=== PATIENT | female | born 1985 | race African-American/Black ===

== ENCOUNTER 2016-08-02 06:22 | Inpatient (IN) ==
[2016-08-02] MEDS ORDERED: ceFAZolin 2,000 MG in PREMIX 1 EACH IV ONE (07:19)
[2016-08-02] MEDS ORDERED: CITRIC ACID/SODIUM CITRATE 30 ML UDCUP PO ONE (07:19)
[2016-08-02] MEDS ORDERED: FAMOTIDINE 20 MG/2 ML VIAL IV ONE (07:19)
[2016-08-02] MEDS ORDERED: LACTATED RINGERS 1,000 ML IV SCH ×2 (07:30→10:30)
[2016-08-02] MEDS ORDERED: OXYTOCIN/LR 20 UNIT/1,000 ML BAG IV ONE ×2 (07:53→10:05)
[2016-08-02 08:04] LABS: Basophils # 0.1 10*3/uL (0.0-0.2); Basophils % 0.6 % (0.0-0.8); Eosinophils % 0.1 % (0.00-10.9); Hematocrit 32.9 VOL% (35.7-47.0); Hemoglobin 10.5 GM/DL (12.0-16.0); Immature Granulocytes % 9.8 %; Immature Granulocytes Absolute 0.76 #; Lymphocytes # 1.3 10*3/uL (1.4-4.0); Mean Corpuscular HGB Conc 31.9 GM/DL (32-36); Mean Corpuscular Hemoglobin 28 PG (27-34); Mean Corpuscular Volume 87.5 FL (87-102); Mean Platelet Volume 12.1 FL (9.6-12.0); Monocytes # 0.8 10*3/uL (0.11-0.8); Monocytes % 10.8 % (1.7-12.7); Neutrophils # 4.8 10*3/uL (1.4-7.4); Neutrophils % 61.7 % (38.7-73.9); Platelet Count 133 T/CUMM (130-400); Red Blood Count 3.76 MC/CUMM (3.8-5.5); Red Cell Distribution Width 15.6 % (9.3-17.3); White Blood Count 7.8 T/CUMM (4-12)
[2016-08-02 08:13] LABS: PT Patient Result 10.5 SECS; Partial Thromboplastin Time 26.4 SECS (0-40)
--- NOTE | 2016-08-02 08:13 | OB/GYN History & Physical ---
History of Present Illness Chief complaint: Repeat section History of present illness: Ms. Del Castillo is a 31 year old female at 39 3/7 wks who presents for scheduled repeat section. complicated by excessive weight gain (85 lbs). No medical or additional surgical history. R/B/A to surgery reviewed. 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 Current Visit: Yes Results - Labs CBC & BMP: 08/02/16 07:31
[2016-08-02 08:32] LABS: Band Neutrophils 1 % (0-10); Eosinophils 2 % (0-10); Hypochromasia Slight; Lymphocytes 19 % (20-55); Metamyelocytes 2 %; Segmented Neutrophils 67 % (50-85); Total Cells Counted 100
[2016-08-02 08:33] LABS: Microcytosis Slight; Platelet Estimate Adequate
[2016-08-02 08:34] LABS: Alanine Aminotransferase 37 U/L (13-56); Albumin 2.6 G/DL (3.4-5.0); Alkaline Phosphatase 170 U/L (45-117); Aspartate Amino Transferase 49 U/L (0-37); Bilirubin,Total < 0.39 MG/DL (0.2-1.0); Blood Urea Nitrogen 6 MG/DL (7-18); Calcium 8.9 MG/DL (8.5-10.1); Glucose 85 MG/DL (74-106); Osmolality,Calculated 279.1 MOS/KG (273-304); Potassium 4.2 MMOL/L (3.5-5.1); Sodium 142 MMOL/L (136-145)
[2016-08-02] MEDS ORDERED: PROPOFOL 200 MG/20 ML VIAL IV ONE (08:35)
[2016-08-02] MEDS ORDERED: ONDANSETRON 4 MG/2 ML VIAL ONE (08:35)
[2016-08-02] MEDS ORDERED: RHO(D) IMMUNE GLOBULIN 300 MCG SYRINGE IM ONE (10:05)
[2016-08-02] MEDS ORDERED: ONDANSETRON 4 MG/2 ML VIAL IV PRN (10:05)
[2016-08-02] MEDS ORDERED: MORPHINE 10 MG/10 ML VIAL ONE (10:17)
[2016-08-02] MEDS ORDERED: fentaNYL 100 MCG/2 ML VIAL ONE (10:17)
[2016-08-02 10:59] LABS: Apearance,Urine CLEAR (Clear); Bacteria,Urine Occasional /HPF (Few); Bilirubin,Urine Negative (Negative); Blood, Urine Negative (Negative); Glucose,Urine (UA) Negative (Negative); Ketones,Urine Negative (Negative); Mucus,Urine Occasional /LPF (Occasional); Nitrite,Urine Negative (Negative); Protein,Urine Negative; RBC,Urine 4 /HPF (0-4); Squamous Epithelial Cell,Urine Occasional /HPF (0-10); Urine Color Yellow (Yellow); Urine Specific Gravity 1.023 (1.001-1.035); Urine Urobilinogen < 2.0 EU/DL (0.2-1.0); WBC,Urine 2 /HPF (0-6)
[2016-08-02] MEDS: HYDROmorphone 2 MG/1 ML VIAL IV PRN ×2 (12:10→14:20)
[2016-08-02 19:06] LABS: Basophils % 0.4 % (0.0-0.8); Eosinophils % 0.1 % (0.00-10.9); Hematocrit 32.5 VOL% (35.7-47.0); Hemoglobin 10.4 GM/DL (12.0-16.0); Immature Granulocytes % 6.3 %; Immature Granulocytes Absolute 0.52 #; Lymphocytes # 0.9 10*3/uL (1.4-4.0); Lymphocytes % 10.8 % (21.3-54.2); Mean Corpuscular Hemoglobin 28 PG (27-34); Mean Corpuscular Volume 87.1 FL (87-102); Mean Platelet Volume 12.3 FL (9.6-12.0); Monocytes # 0.4 10*3/uL (0.11-0.8); Monocytes % 5.2 % (1.7-12.7); Neutrophils # 6.4 10*3/uL (1.4-7.4); Neutrophils % 77.2 % (38.7-73.9); Platelet Count 122 T/CUMM (130-400); Red Blood Count 3.73 MC/CUMM (3.8-5.5); Red Cell Distribution Width 15.7 % (9.3-17.3); White Blood Count 8.3 T/CUMM (4-12)
[2016-08-02] MEDS: DOCUSATE SODIUM 100 MG CAPSULE PO SCH (21:56)
[2016-08-03 07:18] LABS: Basophils % 0.4 % (0.0-0.8); Hematocrit 30.2 VOL% (35.7-47.0); Hemoglobin 9.7 GM/DL (12.0-16.0); Immature Granulocytes % 4.8 %; Immature Granulocytes Absolute 0.39 #; Lymphocytes # 0.7 10*3/uL (1.4-4.0); Lymphocytes % 8.4 % (21.3-54.2); Mean Corpuscular HGB Conc 32.1 GM/DL (32-36); Mean Corpuscular Hemoglobin 27 PG (27-34); Mean Corpuscular Volume 85.1 FL (87-102); Mean Platelet Volume 11.9 FL (9.6-12.0); Monocytes # 0.8 10*3/uL (0.11-0.8); Monocytes % 9.5 % (1.7-12.7); Neutrophils # 6.3 10*3/uL (1.4-7.4); Neutrophils % 76.9 % (38.7-73.9); Platelet Count 129 T/CUMM (130-400); Red Blood Count 3.55 MC/CUMM (3.8-5.5); Red Cell Distribution Width 15.9 % (9.3-17.3); White Blood Count 8.1 T/CUMM (4-12)
--- NOTE | 2016-08-03 08:32 | OB/GYN Progress Note ---
Assessment and Plan (1) 39 weeks gestation of Status: Acute Current Visit: Yes (2) H/O section Status: Acute Assessment and plan: Plan repeat section. Current Visit: Yes (3) S/P repeat low transverse Status: Acute Assessment and plan: POD#1 s/p repeat section Doing ok today. BP good. Platelets stable. (Platelets on the lower end and LFTs mildly elevated yesterday. 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 She also has a cough with some productivity. Unable to really tell me if she had a cough or cold prior to admission to the hosptial. No flatus. 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 Mild distension) Results - Labs CBC & BMP: 08/03/16 07:00 08/02/16 07:31
[2016-08-03] MEDS: MULTIVITAMIN (PRENATAL) TABLET PO SCH (09:14)
[2016-08-03] MEDS: MAGNESIUM HYDROXIDE SUSP 30 ML UDCUP PO PRN ×2 (09:14→20:00)
[2016-08-03] MEDS: DOCUSATE SODIUM 100 MG CAPSULE PO SCH ×2 (09:14→19:59)
[2016-08-03] MEDS: SIMETHICONE CHEW 80 MG TABLET PO PRN ×2 (09:14→16:45)
--- NOTE | 2016-08-03 13:38 | Anesthesia ---
Anesthesia Post OP - Post Ansesthetic Evaluation Patient seen in post op: Yes Resp: within normal limits CV: within normal limits Mental: within normal limits Temp: within normal limits [id number]: within normal limits Nausea and Vomiting: within normal limits Pain: within normal limits
[2016-08-03] MEDS: IBUPROFEN 800 MG TABLET PO PRN (16:40)
[2016-08-04] MEDS: IBUPROFEN 800 MG TABLET PO PRN
[2016-08-04] MEDS: DOCUSATE SODIUM 100 MG CAPSULE PO SCH ×2 (09:16→21:45)
[2016-08-04] MEDS: MULTIVITAMIN (PRENATAL) TABLET PO SCH (09:16)
--- NOTE | 2016-08-04 11:48 | OB/GYN Progress Note ---
Assessment and Plan (1) 39 weeks gestation of Status: Acute Current Visit: Yes (2) H/O section Status: Acute Assessment and plan: Plan repeat section. Current Visit: Yes (3) S/P repeat low transverse Status: Acute Assessment and plan: POD#2 s/p repeat section Doing ok today. Still with edema. ERIC up a bit. 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 No issues with eating. Positive swelling. 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
[2016-08-05 07:21] VITALS: BP 118/69
--- NOTE | 2016-08-05 08:08 | Discharge Summary ---
Hospital Course - Hospital Course Hospital Course: Rotine post op course. Feels good this morning and is ready to go home. Diagnosis - Discharge Diagnosis (1) 39 weeks gestation of Status: Acute (2) H/O section Status: Acute (3) S/P repeat low transverse Status: Acute Specialty Discharge - Follow Up or Referrals Follow up with: Osiris Luis MD [Physician] - Discharge Plan - Discharge Data Disposition: Disch To Home/Self Care Condition at Discharge: Stable Discharge Diet: advance to your usual diet Activity: other (routine post op) Hygiene: may shower Weight Bearing at Discharge: full weight bearing Driving: not for (2 weeks) - Discharge Medications New Docusate Sodium Cap [Colace Cap] 100 mg PO BID #30 capsule HYDROcodone/ACETAMIN 5-325 [[place] 5-325] 2 tablet PO Q6H PRN #20 tablet PRN Reason: Pain Severe (8-10) Ibuprofen Tab [Motrin Tab] 800 mg PO Q8H PRN #30 tablet PRN Reason: Pain Severe (8-10) No Action Vit No.124/Iron/FA [ Vitamin Tablet] 1 tablet PO DAILY - Follow Up or Referral Follow Up: Osiris Luis MD [Physician] - - Forms/Instructions Instructions: Section (DC), Acute Wound Care (DC), Bleeding (DC) Exam - Constitutional Vitals: Period Temp Pulse Resp BP Sys/Fraser Pulse Ox Last 24 Hr 97.0 F-100.1 F 89-116 18-20 105-136/64-78 98-99 General appearance: no acute distress - Head Head exam: Present: normocephalic - Eye Eye exam: Present: EOMI - GI/Abdominal GI/Abdominal exam: Present: soft, other (incision intact) DS: Provider Date of admission: 08/02/16 07:19 Primary care physician: . No PCP Attending physician on admission: Osiris Luis MD Consults: 08/02/16 10:05 Consult to Kiss Setter Hand [CONS] Routine Consult Kiss Setter Hand: Breast Feeding Discharging clinician: Osiris Luis MD
[2016-08-05] MEDS ORDERED: DIPH/TET/ACEL PERT BOOSTER VACCINE 0.5 ML VIAL IM ONE (08:57)
[2016-08-05] MEDS: DOCUSATE SODIUM 100 MG CAPSULE PO SCH (10:15)
[2016-08-05] MEDS: MULTIVITAMIN (PRENATAL) TABLET PO SCH (10:15)
== END 2016-08-05 11:15 | disposition home or self-care (01) | DRG 766 ==
LOC: N.LDOUT 06:22 → N.LD 06:27 → N.OB 14:13
PROVIDERS: ADMIT Obstetrics & Gynecology; ATTEND Obstetrics & Gynecology
PROC: LDCSECT (ICD-10-PCS; 2016-08-02 07:35)

== ENCOUNTER 2018-02-19 02:22 | Inpatient (IN) ==
[2018-02-19] MEDS ORDERED: LACTATED RINGERS 500 ML IV PRN (02:42)
[2018-02-19] MEDS ORDERED: FAMOTIDINE 20 MG/2 ML VIAL IV PRN (02:42)
[2018-02-19] MEDS ORDERED: MEPERIDINE 50 MG/1 ML VIAL IV PRN (02:42)
[2018-02-19] MEDS ORDERED: BUTORPHANOL 2 MG/ML VIAL IV PRN (02:42)
[2018-02-19] MEDS ORDERED: CITRIC ACID/SODIUM CITRATE 30 ML UDCUP PO ONE (02:44)
[2018-02-19] MEDS ORDERED: OXYTOCIN/LR 20 UNIT/1,000 ML BAG IV ONE (02:45)
[2018-02-19] MEDS: LACTATED RINGERS 1,000 ML IV SCH (02:47)
[2018-02-19] MEDS ORDERED: ceFAZolin 2,000 MG in PREMIX 1 EACH IV ONE (02:49)
[2018-02-19 02:50] LABS: Apearance,Urine Slightly Hazy (Clear); Bacteria,Urine Occasional /HPF (Few); Bilirubin,Urine Negative (Negative); Blood, Urine Small mg/dL (Negative); Glucose,Urine (UA) Negative (Negative); Hyaline Casts,Urine 1 /LPF (0-3); Ketones,Urine Negative (Negative); Mucus,Urine Occasional /LPF (Occasional); Nitrite,Urine Negative (Negative); Protein,Urine Negative; RBC,Urine 19 /HPF (0-4); Squamous Epithelial Cell,Urine Occasional /HPF (0-10); Urine Color Yellow (Yellow); Urine Specific Gravity 1.013 (1.001-1.035); Urine Urobilinogen < 2.0 EU/DL (0.2-1.0); WBC,Urine 25 /HPF (0-6)
[2018-02-19 02:55] LABS: Basophils # 0.1 10*3/uL (0.0-0.2); Basophils % 0.9 % (0.0-0.8); Eosinophils % 0.1 % (0.00-10.9); Hematocrit 36.2 VOL% (35.7-47.0); Hemoglobin 11.5 GM/DL (12.0-16.0); Immature Granulocytes % 8.7 %; Immature Granulocytes Absolute 0.79 #; Lymphocytes # 1.3 10*3/uL (1.4-4.0); Lymphocytes % 14.6 % (21.3-54.2); Mean Corpuscular HGB Conc 31.8 GM/DL (32-36); Mean Corpuscular Hemoglobin 28 PG (27-34); Mean Corpuscular Volume 86.8 FL (87-102); Mean Platelet Volume 11.9 FL (9.6-12.0); Monocytes # 0.9 10*3/uL (0.11-0.8); Monocytes % 9.5 % (1.7-12.7); NRBC # 0.02 10*3/uL; Neutrophils % 66.2 % (38.7-73.9); Platelet Count 131 T/CUMM (130-400); Red Blood Count 4.17 MC/CUMM (3.8-5.5); Red Cell Distribution Width 14.8 % (9.3-17.3); White Blood Count 9.1 T/CUMM (4-12)
[2018-02-19 03:20] LABS: Alanine Aminotransferase 46 U/L (13-56); Albumin 2.7 G/DL (3.4-5.0); Alkaline Phosphatase 88 U/L (45-117); Aspartate Amino Transferase 43 U/L (0-37); Bilirubin,Total < 0.39 MG/DL (0.2-1.0); Blood Urea Nitrogen 6 MG/DL (7-18); Calcium 8.9 MG/DL (8.5-10.1); Glucose 109 MG/DL (74-106); Osmolality,Calculated 273.7 MOS/KG (273-304); Potassium 4.1 MMOL/L (3.5-5.1); Sodium 138 MMOL/L (136-145); Total Protein 7.1 G/DL (6.4-8.3)
[2018-02-19 03:33] LABS: Lymphocytes 23 % (20-55); Metamyelocytes 2 %; Myelocytes 1 %; Segmented Neutrophils 64 % (50-85); Total Cells Counted 100
[2018-02-19 03:34] LABS: Atypical Lymphocytes Few; Reactive Lymphocytes Few
[2018-02-19 03:35] LABS: Giant Platelets Few; Platelet Estimate Normal; Polychromasia Few
[2018-02-19 03:36] LABS: Hypochromasia Slight
[2018-02-19] MEDS ORDERED: hydrOXYzine HCL 25 MG/1 ML VIAL IM PRN (04:54)
[2018-02-19] MEDS ORDERED: diphenhydrAMINE 50 MG/1 ML VIAL IV PRN (04:54)
[2018-02-19] MEDS ORDERED: NALOXONE 0.4 MG/ML VIAL IV PRN (04:54)
[2018-02-19] MEDS ORDERED: MORPHINE PCA 30 MG/30 ML SYRINGE IV SCH (05:00)
[2018-02-19] MEDS ORDERED: MIDAZOLAM 2 MG/2 ML VIAL ONE (05:09)
[2018-02-19] MEDS ORDERED: MORPHINE 10 MG/10 ML VIAL ONE (05:09)
[2018-02-19] MEDS ORDERED: fentaNYL 100 MCG/2 ML VIAL ONE (05:09)
[2018-02-19 05:12] LABS: Apearance,Urine CLEAR (Clear); Bilirubin,Urine Negative (Negative); Blood, Urine Negative (Negative); Glucose,Urine (UA) Negative (Negative); Hyaline Casts,Urine 4 /LPF (0-3); Ketones,Urine Negative (Negative); Mucus,Urine Few /LPF (Occasional); Nitrite,Urine Negative (Negative); Protein,Urine Negative; RBC,Urine 5 /HPF (0-4); Squamous Epithelial Cell,Urine Occasional /HPF (0-10); Urine Color Yellow (Yellow); Urine Specific Gravity 1.015 (1.001-1.035); Urine Urobilinogen < 2.0 EU/DL (0.2-1.0); WBC,Urine 1 /HPF (0-6)
[2018-02-19 05:57] LABS: Cord Arterial Blood HCO3 17.8 MMOL/L
[2018-02-19 06:07] LABS: Cord Venous Blood HCO3 22.4 MMOL/L; Cord Venous Blood PCO2 49.3 MMHG; Cord Venous Blood PO2 36.1
[2018-02-19] MEDS ORDERED: MAGNESIUM HYDROXIDE SUSP 30 ML UDCUP PO PRN (10:17)
[2018-02-19] MEDS ORDERED: ceFAZolin 1,000 MG in SYRINGE 1 EACH IV SCH ×2 (10:17→22:30)
[2018-02-19] MEDS ORDERED: RHO(D) IMMUNE GLOBULIN 300 MCG SYRINGE IM ONE (10:17)
[2018-02-19 14:50] LABS: Basophils % 0.2 % (0.0-0.8); Hematocrit 27.5 VOL% (35.7-47.0); Hemoglobin 8.7 GM/DL (12.0-16.0); Immature Granulocytes % 3.5 %; Immature Granulocytes Absolute 0.34 #; Lymphocytes # 0.7 10*3/uL (1.4-4.0); Mean Corpuscular HGB Conc 31.6 GM/DL (32-36); Mean Corpuscular Hemoglobin 27 PG (27-34); Mean Corpuscular Volume 86.8 FL (87-102); Mean Platelet Volume 12.7 FL (9.6-12.0); Monocytes # 0.7 10*3/uL (0.11-0.8); Monocytes % 6.7 % (1.7-12.7); Neutrophils % 82.6 % (38.7-73.9); Platelet Count 117 T/CUMM (130-400); Red Blood Count 3.17 MC/CUMM (3.8-5.5); Red Cell Distribution Width 14.9 % (9.3-17.3); White Blood Count 9.7 T/CUMM (4-12)
[2018-02-19] MEDS ORDERED: diphenhydrAMINE CAP 50 MG CAPSULE PO ONE (16:59)
[2018-02-19] MEDS ORDERED: SODIUM CHLORIDE 0.9% 1,000 ML IV PRN (16:59)
[2018-02-19] MEDS: METHYLERGONOVINE 0.2 MG/1 ML AMP IM SCH ×2 (17:08→22:37)
[2018-02-19] MEDS ORDERED: miSOPROStol 200 MCG TABLET VAG ONE (18:00)
[2018-02-19] MEDS: IBUPROFEN 800 MG TABLET PO SCH ×2 (20:24→20:28)
[2018-02-19] MEDS: MULTIVITAMIN (PRENATAL) TABLET PO SCH (22:18)
[2018-02-19] MEDS ORDERED: SODIUM CHLORIDE 0.9% 100 ML IV ONE (22:33)
[2018-02-19] MEDS: DOCUSATE SODIUM 100 MG CAPSULE PO SCH ×2 (22:37)
[2018-02-19] MEDS: SIMETHICONE CHEW 80 MG TABLET PO PRN (22:37)
[2018-02-20] MEDS: IBUPROFEN 800 MG TABLET PO SCH ×3 (04:10→22:44)
[2018-02-20 04:58] LABS: Basophils % 0.2 % (0.0-0.8); Hemoglobin 8.4 GM/DL (12.0-16.0); Immature Granulocytes % 4.6 %; Immature Granulocytes Absolute 0.43 #; Lymphocytes # 0.9 10*3/uL (1.4-4.0); Lymphocytes % 9.4 % (21.3-54.2); Mean Corpuscular HGB Conc 32.3 GM/DL (32-36); Mean Corpuscular Hemoglobin 28 PG (27-34); Mean Corpuscular Volume 86.4 FL (87-102); Mean Platelet Volume 11.8 FL (9.6-12.0); Monocytes % 10.1 % (1.7-12.7); Neutrophils # 7.2 10*3/uL (1.4-7.4); Neutrophils % 75.7 % (38.7-73.9); Platelet Count 120 T/CUMM (130-400); Red Blood Count 3.01 MC/CUMM (3.8-5.5); Red Cell Distribution Width 14.9 % (9.3-17.3); White Blood Count 9.4 T/CUMM (4-12)
[2018-02-20 05:25] LABS: Band Neutrophils 5 % (0-10); Hypochromasia 1+; Lymphocytes 6 % (20-55); Platelet Estimate Normal; Segmented Neutrophils 80 % (50-85); Total Cells Counted 100
[2018-02-20] MEDS: MULTIVITAMIN (PRENATAL) TABLET PO SCH (08:05)
[2018-02-20] MEDS: SIMETHICONE CHEW 80 MG TABLET PO PRN ×3 (08:05→20:54)
[2018-02-20] MEDS: DOCUSATE SODIUM 100 MG CAPSULE PO SCH ×2 (08:05→20:54)
[2018-02-20] MEDS: METOCLOPRAMIDE 10 MG/2 ML VIAL IV SCH ×3 (08:50→20:53)
[2018-02-20] MEDS: NITROFURANTOIN MACRO/MONO 100 MG CAPSULE PO SCH ×2 (13:15→20:53)
[2018-02-20] MEDS: MAGNESIUM HYDROXIDE SUSP 30 ML UDCUP PO PRN ×2 (14:37→20:54)
[2018-02-20] MEDS: BISACODYL 10 MG SUPP RECTAL PRN (18:15)
[2018-02-21] MEDS: SIMETHICONE CHEW 80 MG TABLET PO PRN ×3 (02:51→20:31)
[2018-02-21] MEDS: METOCLOPRAMIDE 10 MG/2 ML VIAL IV SCH ×4 (02:51→20:25)
[2018-02-21] MEDS: MAGNESIUM HYDROXIDE SUSP 30 ML UDCUP PO PRN ×3 (04:32→20:31)
[2018-02-21] MEDS: IBUPROFEN 800 MG TABLET PO SCH ×2 (06:57→19:19)
[2018-02-21] MEDS: DEXTROSE 5% LACTATED RINGERS 1,000 ML IV SCH ×3 (08:35→23:54)
[2018-02-21] MEDS: DOCUSATE SODIUM 100 MG CAPSULE PO SCH ×2 (08:39→20:31)
[2018-02-21] MEDS: MULTIVITAMIN (PRENATAL) TABLET PO SCH (08:39)
[2018-02-21] MEDS: NITROFURANTOIN MACRO/MONO 100 MG CAPSULE PO SCH ×2 (08:39→20:31)
[2018-02-21] MEDS: BISACODYL 10 MG SUPP RECTAL PRN (15:45)
[2018-02-22] MEDS: METOCLOPRAMIDE 10 MG/2 ML VIAL IV SCH ×4 (01:38→20:50)
[2018-02-22] MEDS: SIMETHICONE CHEW 80 MG TABLET PO PRN (01:45)
[2018-02-22] MEDS: IBUPROFEN 800 MG TABLET PO SCH ×3 (03:38→18:03)
[2018-02-22] MEDS: BISACODYL 10 MG SUPP RECTAL PRN (03:38)
[2018-02-22 07:26] LABS: Basophils % 0.3 % (0.0-0.8); Hematocrit 24.2 VOL% (35.7-47.0); Hemoglobin 7.9 GM/DL (12.0-16.0); Immature Granulocytes % 10.7 %; Immature Granulocytes Absolute 0.65 #; Lymphocytes # 0.4 10*3/uL (1.4-4.0); Lymphocytes % 6.9 % (21.3-54.2); Mean Corpuscular HGB Conc 32.6 GM/DL (32-36); Mean Corpuscular Hemoglobin 28 PG (27-34); Mean Corpuscular Volume 84.9 FL (87-102); Monocytes # 0.8 10*3/uL (0.11-0.8); Monocytes % 12.5 % (1.7-12.7); NRBC # 0.03 10*3/uL; Neutrophils # 4.2 10*3/uL (1.4-7.4); Neutrophils % 69.6 % (38.7-73.9); Platelet Count 203 T/CUMM (130-400); Red Blood Count 2.85 MC/CUMM (3.8-5.5); Red Cell Distribution Width 14.7 % (9.3-17.3); White Blood Count 6.1 T/CUMM (4-12)
[2018-02-22 07:52] LABS: Albumin 1.7 G/DL (3.4-5.0); Bilirubin,Total 0.5 MG/DL (0.2-1.0); Calcium 7.8 MG/DL (8.5-10.1); Potassium 3.5 MMOL/L (3.5-5.1); Total Protein 5.6 G/DL (6.4-8.3)
[2018-02-22 08:02] LABS: Band Neutrophils 10 % (0-10); Eosinophils 1 % (0-10); Hypochromasia 1+; Lymphocytes 11 % (20-55); Nucleated Red Blood Cells 1 (0-5); Platelet Estimate Adequate; Segmented Neutrophils 66 % (50-85); Total Cells Counted 100
[2018-02-22] MEDS ORDERED: CLINDAMYCIN INJ 600 MG in PREMIX 1 EACH IV ONE (08:21)
[2018-02-22] MEDS: AMPICILLIN INJ 2,000 MG in SODIUM CHLORIDE 0.9% 100 ML IV SCH ×3 (08:47→20:56)
[2018-02-22] MEDS: MULTIVITAMIN (PRENATAL) TABLET PO SCH (09:07)
[2018-02-22] MEDS: DOCUSATE SODIUM 100 MG CAPSULE PO SCH ×2 (09:07→21:40)
[2018-02-22] MEDS: NITROFURANTOIN MACRO/MONO 100 MG CAPSULE PO SCH (09:07)
[2018-02-22] MEDS: MEPERIDINE 25 MG/1 ML VIAL IV PRN ×2 (10:23→17:32)
[2018-02-22] MEDS: DEXTROSE 5% LACTATED RINGERS 1,000 ML IV SCH (10:40)
[2018-02-22] MEDS: GENTAMICIN INJ 120 MG in PREMIX 1 EACH IV SCH ×2 (11:12→18:37)
[2018-02-22] MEDS: CLINDAMYCIN INJ 600 MG in PREMIX 1 EACH IV SCH ×2 (16:40→22:06)
[2018-02-22] MEDS: KETOROLAC 30 MG/1 ML VIAL IV SCH (19:47)
[2018-02-23] MEDS: IBUPROFEN 800 MG TABLET PO SCH ×3 (00:20→15:44)
[2018-02-23] MEDS: METOCLOPRAMIDE 10 MG/2 ML VIAL IV SCH ×4 (01:57→20:11)
[2018-02-23] MEDS: AMPICILLIN INJ 2,000 MG in SODIUM CHLORIDE 0.9% 100 ML IV SCH ×4 (02:02→20:17)
[2018-02-23] MEDS: GENTAMICIN INJ 120 MG in PREMIX 1 EACH IV SCH ×2 (02:37→11:09)
[2018-02-23] MEDS: DEXTROSE 5% LACTATED RINGERS 1,000 ML IV SCH (02:37)
[2018-02-23] MEDS: CLINDAMYCIN INJ 600 MG in PREMIX 1 EACH IV SCH ×4 (03:55→22:03)
[2018-02-23] MEDS: MEPERIDINE 25 MG/1 ML VIAL IV PRN (05:25)
[2018-02-23] MEDS: ONDANSETRON 4 MG/2 ML VIAL IV PRN (05:26)
[2018-02-23 08:50] LABS: Basophils % 0.2 % (0.0-0.8); Eosinophils # 0.1 10*3/uL (0.0-0.87); Eosinophils % 2.5 % (0.00-10.9); Hematocrit 23.2 VOL% (35.7-47.0); Hemoglobin 7.4 GM/DL (12.0-16.0); Immature Granulocytes % 14.5 %; Immature Granulocytes Absolute 0.63 #; Lymphocytes # 0.8 10*3/uL (1.4-4.0); Lymphocytes % 17.3 % (21.3-54.2); Mean Corpuscular HGB Conc 31.9 GM/DL (32-36); Mean Corpuscular Hemoglobin 28 PG (27-34); Mean Corpuscular Volume 88.2 FL (87-102); Mean Platelet Volume 9.9 FL (9.6-12.0); Monocytes # 0.7 10*3/uL (0.11-0.8); Monocytes % 15.9 % (1.7-12.7); NRBC # 0.03 10*3/uL; Neutrophils # 2.2 10*3/uL (1.4-7.4); Neutrophils % 49.6 % (38.7-73.9); Platelet Count 241 T/CUMM (130-400); Red Blood Count 2.63 MC/CUMM (3.8-5.5); Red Cell Distribution Width 14.7 % (9.3-17.3); White Blood Count 4.3 T/CUMM (4-12)
[2018-02-23 09:12] LABS: Atypical Lymphocytes Few; Band Neutrophils 5 % (0-10); Eosinophils 2 % (0-10); Hypochromasia 1+; Lymphocytes 26 % (20-55); Metamyelocytes 1 %; Myelocytes 1 %; Segmented Neutrophils 51 % (50-85); Total Cells Counted 100
[2018-02-23] MEDS: MULTIVITAMIN (PRENATAL) TABLET PO SCH (09:12)
[2018-02-23] MEDS: DOCUSATE SODIUM 100 MG CAPSULE PO SCH ×2 (09:12→21:03)
[2018-02-23 09:13] LABS: Microcytosis Slight; Platelet Estimate Normal
[2018-02-23 09:26] LABS: Calcium 7.7 MG/DL (8.5-10.1); Osmolality,Calculated 275.5 MOS/KG (273-304); Potassium 3.3 MMOL/L (3.5-5.1)
[2018-02-23] MEDS: KETOROLAC 30 MG/1 ML VIAL IV SCH (14:12)
[2018-02-23] MEDS: LACTATED RINGERS 1,000 ML IV SCH (14:12)
[2018-02-23] MEDS: GENTAMICIN INJ 160 MG in SODIUM CHLORIDE 0.9% 100 ML IV SCH (18:34)
[2018-02-24] MEDS: METOCLOPRAMIDE 10 MG/2 ML VIAL IV SCH ×4 (01:22→20:32)
[2018-02-24] MEDS: MEPERIDINE 25 MG/1 ML VIAL IV PRN ×2 (01:29→08:04)
[2018-02-24] MEDS: ONDANSETRON 4 MG/2 ML VIAL IV PRN (01:30)
[2018-02-24] MEDS: GENTAMICIN INJ 160 MG in SODIUM CHLORIDE 0.9% 100 ML IV SCH ×3 (01:34→18:41)
[2018-02-24] MEDS ORDERED: KETOROLAC 30 MG/1 ML VIAL IV PRN (01:46)
[2018-02-24] MEDS: IBUPROFEN 800 MG TABLET PO SCH ×4 (02:07→20:51)
[2018-02-24] MEDS: AMPICILLIN INJ 2,000 MG in SODIUM CHLORIDE 0.9% 100 ML IV SCH ×4 (02:44→20:32)
[2018-02-24] MEDS: DEXTROSE 5% LACTATED RINGERS 1,000 ML IV SCH ×3 (02:47→18:07)
[2018-02-24] MEDS: CLINDAMYCIN INJ 600 MG in PREMIX 1 EACH IV SCH ×4 (04:34→22:42)
[2018-02-24] MEDS: DOCUSATE SODIUM 100 MG CAPSULE PO SCH ×2 (09:40→22:39)
[2018-02-24] MEDS: MULTIVITAMIN (PRENATAL) TABLET PO SCH (09:40)
[2018-02-24 09:51] LABS: Basophils % 0.3 % (0.0-0.8); Eosinophils % 0.1 % (0.00-10.9); Hematocrit 23.3 VOL% (35.7-47.0); Hemoglobin 7.5 GM/DL (12.0-16.0); Immature Granulocytes % 17.2 %; Lymphocytes # 0.8 10*3/uL (1.4-4.0); Lymphocytes % 10.8 % (21.3-54.2); Mean Corpuscular HGB Conc 32.2 GM/DL (32-36); Mean Corpuscular Hemoglobin 27 PG (27-34); Mean Platelet Volume 9.8 FL (9.6-12.0); Monocytes # 0.5 10*3/uL (0.11-0.8); Monocytes % 6.9 % (1.7-12.7); NRBC # 0.05 10*3/uL; Neutrophils # 4.5 10*3/uL (1.4-7.4); Neutrophils % 64.7 % (38.7-73.9); Platelet Count 269 T/CUMM (130-400); Red Blood Count 2.74 MC/CUMM (3.8-5.5); Red Cell Distribution Width 14.6 % (9.3-17.3)
[2018-02-24 10:13] LABS: Calcium 7.8 MG/DL (8.5-10.1); Osmolality,Calculated 277.3 MOS/KG (273-304); Potassium 3.4 MMOL/L (3.5-5.1)
[2018-02-24] MEDS ORDERED: POTASSIUM CHLORIDE RIDER 10 MEQ in PREMIX 1 EACH IV PRN ×2 (10:34→12:47)
[2018-02-24 10:39] LABS: Atypical Lymphocytes Few; Band Neutrophils 6 % (0-10); Lymphocytes 14 % (20-55); Myelocytes 1 %; Nucleated Red Blood Cells 2 (0-5); Segmented Neutrophils 63 % (50-85); Total Cells Counted 100
[2018-02-24 10:40] LABS: Hypochromasia 1+; Microcytosis Slight; Platelet Estimate Normal
[2018-02-24] MEDS: POTASSIUM CHLORIDE RIDER 10 MEQ in PREMIX 1 EACH IV SCH ×3 (16:25→18:42)
[2018-02-25] MEDS: METOCLOPRAMIDE 10 MG/2 ML VIAL IV SCH ×4 (02:42→22:39)
[2018-02-25] MEDS: GENTAMICIN INJ 160 MG in SODIUM CHLORIDE 0.9% 100 ML IV SCH (02:43)
[2018-02-25] MEDS: AMPICILLIN INJ 2,000 MG in SODIUM CHLORIDE 0.9% 100 ML IV SCH ×2 (04:14→08:44)
[2018-02-25] MEDS: CLINDAMYCIN INJ 600 MG in PREMIX 1 EACH IV SCH (04:51)
[2018-02-25] MEDS: DEXTROSE 5% LACTATED RINGERS 1,000 ML IV SCH (04:52)
[2018-02-25] MEDS: IBUPROFEN 800 MG TABLET PO SCH ×3 (08:16→22:37)
[2018-02-25] MEDS: MULTIVITAMIN (PRENATAL) TABLET PO SCH (08:17)
[2018-02-25] MEDS: DOCUSATE SODIUM 100 MG CAPSULE PO SCH ×2 (14:07→22:44)
[2018-02-26] MEDS: METOCLOPRAMIDE 10 MG/2 ML VIAL IV SCH ×2 (06:24→08:27)
[2018-02-26] MEDS: IBUPROFEN 800 MG TABLET PO SCH (08:26)
[2018-02-26] MEDS: MULTIVITAMIN (PRENATAL) TABLET PO SCH (08:26)
[2018-02-26 08:44] VITALS: BP 135/72
== END 2018-02-26 13:30 | disposition home or self-care (01) | DRG 765 ==
LOC: N.LDOUT 02:22 → N.LD 02:26 → N.OB 10:59
PROVIDERS: ADMIT Obstetrics & Gynecology; ATTEND Obstetrics & Gynecology